=== PATIENT | female | born 1970 | race Caucasian/White ===

== ENCOUNTER → 2024-04-23 08:21 | Outpatient (REF) | payer BC, SELFPAY | LOC: RAD 08:21 | PROVIDERS: ATTENDING PHYSICIAN Student in an Organized Health Care Education/Training Program; FAMILY PHYSICIAN Nurse Practitioner | DX: M25.559 Pain in unspecified hip (principal); M25.519 Pain in unspecified shoulder; M25.579 Pain in unspecified ankle and joints of unspecified foot | CPT/HCPCS: 76882 ==